=== PATIENT | male | born 1955 | race Hispanic/Latino ===

== ENCOUNTER → 2017-06-18 | Day surgery (SDC) | payer MEDICARE ==
[2017-06-18 12:27] VITALS: BMI 19.2
--- NOTE | 2017-06-18 12:51 | CP.SDSHP ---
Same Day Surgery H & P - History Proposed Procedure: US guided paracentesis Pre-Op Diagnosis: Ascites - Allergies Allergies: Allergies morphine Allergy (Verified 06/18/17 12:34) RASH Penicillins Allergy (Verified 06/18/17 12:33) RASH - Physical Exam Mental Status: Alert & Oriented x3 Neuro: WNL Heart: WNL - Impression Impression: Pt with moderate ascites and discomfort. Plan US guided paracentesis. Pt. Evaluated Today:Candidate for Anesthesia & Procedure: No - Date & Time Date: 06/18/17 Time: 11:30 Short Stay Discharge - Short Stay Discharge Admitting Diagnosis/Reason for Visit: ASCITES Disposition: HOME/ ROUTINE
--- NOTE | 2017-06-18 12:52 | PCM.SURG1 ---
Surgeon's Initial Post Op Note - Surgeon's Notes Surgeon: Deepak Ewing MD Data Warehousing Engineer: NONE Type of Anesthesia: Local Pre-Operative Diagnosis: Ascites Operative Findings: US showed moderate amount of ascites Post-Operative Diagnosis: Ascites Operation Performed: US guided paracentesis Specimen/Specimens Removed: 4.1 liters Estimated Blood Loss: EBL {In ML}: 0 Blood Products Given: N/A Drains Used: No Drains Post-Op Condition: Fair Date of Surgery/Procedure: 06/18/17 Time of Surgery/Procedure: 12:25
[2017-06-18 12:59] LABS: BODY FLUID TYPE PERITONEAL/ASCITES
[2017-06-18 13:42] LABS: BF GROSS APPEARANCE CLEAR (CLEAR)
[2017-06-18 13:43] LABS: BODY FLUID MONO/MACROPHAGE 7 % (0-0)
--- NOTE | 2017-06-18 13:50 | US ---
Date of Procedure: 06/18/2017 PROCEDURE: Ultrasound-guided paracentesis, CPT 19482 Medications: 7 cc 1% Lidocaine HISTORY: Ascites, abdominal pain, TECHNIQUE: Following informed consent , the patient was placed supine on the stretcher and the site was marked. A limited abdominal ultrasound was performed that showed a large amount of intra-abdominal fluid. Procedural time out was called and the Pt's abdomen was marked and prepped and draped in the usual sterile fashion. Ultrasound-guided large volume paracentesis performed. A total of 4.1 liters of straw colored fluid was removed without complication. IMPRESSION: Ultrasound-guided large volume paracentesis.
[2017-06-20 23:48] LABS: LDH PERITONEAL FLUID 60 U/L (<63); TOTAL PROTEIN PERITONEAL FLUID <3.0 g/dL
== END | disposition home or self-care (01) ==
LOC: C.SPRAD 09:42
PROVIDERS: ATTEND Radiology Vascular & Interventional Radiology
DX: R18.8 Other ascites (principal); Z88.0 Allergy status to penicillin

== ENCOUNTER → 2017-08-08 | Day surgery (SDC) | payer MEDICARE ==
[2017-07-28 09:06] VITALS: BMI 18.9
--- NOTE | 2017-08-08 10:16 | CP.SDSHP ---
Same Day Surgery H & P - History Proposed Procedure: US guided paracentesis Pre-Op Diagnosis: Ascites - Allergies Allergies: Allergies morphine Allergy (Verified 06/18/17 12:34) RASH Penicillins Allergy (Verified 06/18/17 12:33) RASH - Physical Exam Vital Signs: Vital Signs 08/08/17 08:38 Temperature 97.9 F Pulse Rate 90 Respiratory 18 Rate Blood Pressure 153/84 H O2 Sat by Pulse 97 Oximetry - Impression Impression: Pt with recurrent ascites referred for paracentesis. Plan US guided paracentesis. Pt. Evaluated Today:Candidate for Anesthesia & Procedure: No Short Stay Discharge - Short Stay Discharge Admitting Diagnosis/Reason for Visit: dx:cirrhosis/ascites Disposition: HOME/ ROUTINE
--- NOTE | 2017-08-08 10:17 | PCM.SURG1 ---
Surgeon's Initial Post Op Note - Surgeon's Notes Surgeon: Deepak Ewing MD Cotton Header: NONE Type of Anesthesia: Local Pre-Operative Diagnosis: Ascites Operative Findings: US showed moderate ascites Post-Operative Diagnosis: Ascites Operation Performed: US guided paracentesis Specimen/Specimens Removed: 5 liters of straw colored fluid Estimated Blood Loss: EBL {In ML}: 0 Blood Products Given: N/A Drains Used: No Drains Post-Op Condition: Good Date of Surgery/Procedure: 08/08/17 Time of Surgery/Procedure: 10:15
[2017-08-08 12:50] VITALS: BP 100/71; PULSE 75; RESP 18; TEMP 97.3; O2SAT 99
--- NOTE | 2017-08-10 10:18 | US ---
Date of Procedure: 08/08/2017 PROCEDURE: Ultrasound-guided paracentesis, CPT 57207 Medications: 7 cc 1% Lidocaine HISTORY: Ascites, abdominal pain, cirrhosis TECHNIQUE: Following informed consent , the patient was placed supine on the stretcher and the site was marked. A limited abdominal ultrasound was performed that showed a large amount of intra-abdominal fluid. Procedural time out was called and the Pt's abdomen was marked and prepped and draped in the usual sterile fashion. Ultrasound-guided large volume paracentesis performed. A total of 5 liters of straw colored fluid was removed without complication. IMPRESSION: Ultrasound-guided large volume paracentesis.
== END | disposition home or self-care (01) ==
LOC: C.SPRAD 07:43
PROVIDERS: ATTEND Radiology Vascular & Interventional Radiology
DX: R18.8 Other ascites (principal); K74.60 Unspecified cirrhosis of liver; Z88.0 Allergy status to penicillin

== ENCOUNTER 2017-09-05 08:09 | Day surgery (SDC) | payer MEDICARE ==
[2017-08-08 20:00] VITALS: BMI 18.3
--- NOTE | 2017-09-05 10:09 | PCM.SURG1 ---
Surgeon's Initial Post Op Note - Surgeon's Notes Surgeon: Deepak Ewing MD Manager Quality Systems: NONE Type of Anesthesia: Local Pre-Operative Diagnosis: Ascites, cirrhosis Operative Findings: US showed moderate amount of ascites Post-Operative Diagnosis: Ascites, cirrhosis Operation Performed: US guided paracentesis Specimen/Specimens Removed: 4 liters of straw colored fluid Estimated Blood Loss: EBL {In ML}: 0 Blood Products Given: N/A Drains Used: No Drains Post-Op Condition: Good Date of Surgery/Procedure: 09/05/17 Time of Surgery/Procedure: 10:00
--- NOTE | 2017-09-05 10:11 | CP.SDSHP ---
Same Day Surgery H & P - History Proposed Procedure: Paracentesis Pre-Op Diagnosis: Ascites, cirrhosis - Allergies Allergies: Allergies morphine Allergy (Verified 06/18/17 12:34) RASH Penicillins Allergy (Verified 06/18/17 12:33) RASH - Physical Exam Mental Status: Alert & Oriented x3 - Impression Impression: Pt with cirrhosis and refractory ascites referred for paracentesis. Plan US guided paracentesis. Informed consent obtained. Pt. Evaluated Today:Candidate for Anesthesia & Procedure: No - Date & Time Date: 09/05/17 Time: 09:30 Short Stay Discharge - Short Stay Discharge Admitting Diagnosis/Reason for Visit: RENE Disposition: HOME/ ROUTINE
--- NOTE | 2017-09-05 12:04 | US ---
Date of Procedure: 09/05/2017 PROCEDURE: Ultrasound-guided paracentesis, CPT 21557 Medications: 7 cc 1% Lidocaine HISTORY: Ascites, abdominal pain, cirrhosis TECHNIQUE: Following informed consent , the patient was placed supine on the stretcher and the site was marked. A limited abdominal ultrasound was performed that showed a large amount of intra-abdominal fluid. Procedural time out was called and the Pt's abdomen was marked and prepped and draped in the usual sterile fashion. Ultrasound-guided large volume paracentesis performed. A total of 4 liters of straw colored fluid was removed without complication. IMPRESSION: Ultrasound-guided large volume paracentesis.
== END 2017-09-05 11:17 | disposition home or self-care (01) ==
LOC: C.SPRAD 08:09
PROVIDERS: ATTEND Radiology Vascular & Interventional Radiology
DX: K74.60 Unspecified cirrhosis of liver (principal)

== ENCOUNTER 2017-10-03 08:29 | Day surgery (SDC) | payer MEDICARE ==
[2017-08-08 20:00] VITALS: BMI 18.3
--- NOTE | 2017-10-03 11:54 | CP.SDSHP ---
Same Day Surgery H & P - History Proposed Procedure: US paracentesis Pre-Op Diagnosis: Ascites, cirrhosis - Allergies Allergies: Allergies morphine Allergy (Verified 06/18/17 12:34) RASH Penicillins Allergy (Verified 06/18/17 12:33) RASH - Physical Exam Vital Signs: Vital Signs 10/03/17 09:40 Temperature 97.9 F Pulse Rate 82 Respiratory 20 Rate Blood Pressure 161/88 H Mental Status: Alert & Oriented x3 - Impression Impression: Pt with refractory ascites. Plan US guided paracentesis. Pt. Evaluated Today:Candidate for Anesthesia & Procedure: No Short Stay Discharge - Short Stay Discharge Admitting Diagnosis/Reason for Visit: INCREASING ASCITES /LIVER CIRROHOSIS Disposition: HOME/ ROUTINE
--- NOTE | 2017-10-03 11:55 | PCM.SURG1 ---
Surgeon's Initial Post Op Note - Surgeon's Notes Surgeon: Deepak Ewing MD Agricultural Engineering Teacher: NONE Type of Anesthesia: Local Pre-Operative Diagnosis: Ascites Operative Findings: US showed small amount of ascites Post-Operative Diagnosis: Ascites Operation Performed: US guided paracentesis. Specimen/Specimens Removed: 1.5 liters of straw colored fluid Estimated Blood Loss: EBL {In ML}: 0 Blood Products Given: N/A Drains Used: No Drains Post-Op Condition: Good Date of Surgery/Procedure: 10/03/17 Time of Surgery/Procedure: 11:50
[2017-10-03 12:09] VITALS: BP 135/66; PULSE 60; RESP 18; TEMP 98; O2SAT 98
--- NOTE | 2017-10-03 14:35 | US ---
Date of Procedure: 10/03/2017 PROCEDURE: Ultrasound-guided paracentesis, CPT 92689 Medications: 7 cc 1% Lidocaine HISTORY: Ascites, abdominal pain, cirrhosis TECHNIQUE: Following informed consent , the patient was placed supine on the stretcher and the site was marked. A limited abdominal ultrasound was performed that showed a small amount of intra-abdominal fluid. Procedural time out was called and the Pt's abdomen was marked and prepped and draped in the usual sterile fashion. Ultrasound-guided large volume paracentesis performed. A total of 1.5 liters of straw colored fluid was removed without complication. IMPRESSION: Ultrasound-guided paracentesis.
== END 2017-10-03 12:10 | disposition home or self-care (01) ==
LOC: C.SPRAD 08:29
PROVIDERS: ATTEND Radiology Vascular & Interventional Radiology
DX: K74.60 Unspecified cirrhosis of liver (principal); K70.31 Alcoholic cirrhosis of liver with ascites

== ENCOUNTER → 2017-11-16 | Day surgery (SDC) | payer MEDICARE ==
[2017-11-16 07:45] VITALS: BMI 17.6
[2017-11-16 08:20] LABS: INR 1.4
[2017-11-16 08:22] LABS: BASO # 0.1 K/uL (0.0-0.2); BASO % 2.5 % (0.0-2.0); EOS # 0.2 K/uL (0.0-0.7); EOS % 3.2 % (0.0-4.0); HEMOGLOBIN 8.7 g/dL (12.0-18.0); LYMPH # 1.3 K/uL (1.0-4.3); LYMPH % 27.6 % (20.0-40.0); MEAN CELL VOLUME 70.1 fL (80.0-94.0); MEAN CORPUSCULAR HEMOGLOBIN 21.6 pg (27.0-31.0); MEAN CORPUSCULAR HGB CONC 30.8 g/dL (33.0-37.0); MEAN PLATELET VOLUME 8.7 fL (7.2-11.7); MONO # 0.6 K/uL (0.0-0.8); MONO % 11.8 % (0.0-10.0); NEUT # 2.6 K/uL (1.8-7.0); NEUT % 54.9 % (50.0-75.0); RBC 4.02 Mil/uL (4.40-5.90); RED CELL DISTRIBUTION WIDTH 19.8 % (11.5-14.5); WHITE BLOOD COUNT 4.7 K/uL (4.8-10.8)
[2017-11-16 08:32] LABS: BLOOD UREA NITROGEN 8 mg/dL (9-20); CALCIUM 8.8 mg/dl (8.6-10.4); GFR NON-AFRICAN AMERICAN > 60
--- NOTE | 2017-11-16 10:54 | CP.SDSHP ---
Same Day Surgery H & P - History Proposed Procedure: Paracentesis Pre-Op Diagnosis: Ascites - Allergies Allergies: Allergies morphine Allergy (Intermediate, Verified 11/16/17 07:45) RASH Penicillins Allergy (Intermediate, Verified 11/16/17 07:45) RASH - Physical Exam Mental Status: Alert & Oriented x3 - Impression Impression: Pt with cirrhosis, ascites, abdominal pain. Plan US guided paracentesis. Pt. Evaluated Today:Candidate for Anesthesia & Procedure: No Short Stay Discharge - Short Stay Discharge Admitting Diagnosis/Reason for Visit: OTHER ASCITES Disposition: HOME/ ROUTINE Referrals: Hilario No DO [Primary Care Provider] -
--- NOTE | 2017-11-16 10:55 | PCM.SURG1 ---
Surgeon's Initial Post Op Note - Surgeon's Notes Surgeon: Deepak Ewing md Clin Application Specialist: none Type of Anesthesia: Local Pre-Operative Diagnosis: Ascites Operative Findings: US showed large amount of ascites Post-Operative Diagnosis: Ascites Operation Performed: US guided paracentesis. Specimen/Specimens Removed: 4.6 liters of clear yellow fluid Estimated Blood Loss: EBL {In ML}: 0 Blood Products Given: N/A Drains Used: No Drains Post-Op Condition: Good Date of Surgery/Procedure: 11/16/17 Time of Surgery/Procedure: 10:30
--- NOTE | 2017-11-16 11:04 | US ---
Date of Procedure: 11/16/2017 PROCEDURE: Ultrasound-guided paracentesis, CPT 51117 Medications: 5 cc 1% Lidocaine HISTORY: Ascites, abdominal pain, cirrhosis TECHNIQUE: Following informed consent , the patient was placed supine on the stretcher and the site was marked. A limited abdominal ultrasound was performed that showed a large amount of intra-abdominal fluid. Procedural time out was called and the Pt's abdomen was marked and prepped and draped in the usual sterile fashion. Ultrasound-guided large volume paracentesis performed. A total of 4.6 Liters of straw colored fluid was removed without complication. IMPRESSION: Ultrasound-guided large volume paracentesis.
== END | disposition home or self-care (01) ==
LOC: C.SPRAD 07:32
PROVIDERS: ATTEND Radiology Vascular & Interventional Radiology
DX: R18.8 Other ascites (principal); K74.60 Unspecified cirrhosis of liver; Z88.0 Allergy status to penicillin

== ENCOUNTER 2017-12-28 09:15 | Day surgery (SDC) | payer MEDICARE ==
[2017-12-28 10:07] VITALS: BMI 29.5
--- NOTE | 2017-12-28 10:09 | PCM.SURG1 ---
Surgeon's Initial Post Op Note - Surgeon's Notes Surgeon: Deepak Ewing MD Gas Combustion Engineer: NONE Type of Anesthesia: Local Pre-Operative Diagnosis: Ascites Operative Findings: US showed ascites Post-Operative Diagnosis: Ascites Operation Performed: US guided paracentesis Specimen/Specimens Removed: 4 liters of straw colored fluid Estimated Blood Loss: EBL {In ML}: 0 Blood Products Given: N/A Drains Used: No Drains Post-Op Condition: Good Date of Surgery/Procedure: 12/28/17 Time of Surgery/Procedure: 10:00
--- NOTE | 2017-12-28 10:21 | CP.SDSHP ---
Same Day Surgery H & P - History Proposed Procedure: Paracentesis Pre-Op Diagnosis: Ascites - Allergies Allergies: Allergies morphine Allergy (Intermediate, Verified 11/16/17 07:45) RASH Penicillins Allergy (Intermediate, Verified 11/16/17 07:45) RASH - Physical Exam Mental Status: Alert & Oriented x3 - Impression Impression: Pt with refractory ascites. Plan US guided paracentesis. Pt. Evaluated Today:Candidate for Anesthesia & Procedure: No Short Stay Discharge - Short Stay Discharge Admitting Diagnosis/Reason for Visit: DX: ASCITES Disposition: HOME/ ROUTINE Referrals: Hilario No DO [Primary Care Provider] -
--- NOTE | 2017-12-28 14:10 | US ---
Date of Procedure: 12/28/2017 PROCEDURE: Ultrasound-guided paracentesis, CPT 02468 Medications: 7 cc 1% Lidocaine HISTORY: Ascites, abdominal pain, cirrhosis TECHNIQUE: Following informed consent , the patient was placed supine on the stretcher and the site was marked. A limited abdominal ultrasound was performed that showed a large amount of intra-abdominal fluid. Procedural time out was called and the Pt's abdomen was marked and prepped and draped in the usual sterile fashion. Ultrasound-guided large volume paracentesis performed. A total of 4 liters of straw colored fluid was removed without complication. IMPRESSION: Ultrasound-guided large volume paracentesis.
== END 2017-12-28 11:03 | disposition home or self-care (01) ==
LOC: C.SPRAD 09:15
PROVIDERS: ATTEND Radiology Vascular & Interventional Radiology
DX: R18.8 Other ascites (principal); K74.60 Unspecified cirrhosis of liver